=== PATIENT | female | born 1995 | race Caucasian/White ===

== ENCOUNTER 2020-06-24 12:09 | Observation (INO) | payer BC, MEDICAID ==
[~2020-06-24] VITALS: Ht 170.2 cm; Wt 108.9 kg
[2020-06-24 12:10] VITALS: BP_SYST 129
[2020-06-24] MEDS ORDERED: NACL 0.9% 1,000 ML IV ONE (12:15)
[2020-06-24 12:57] LABS: BASOPHILS # (AUTO) 0.1 K/uL (0.0-0.2); BASOPHILS % (AUTO) 0.9 % (0.0-2.0); EOSINOPHILS % (AUTO) 0.2 % (0.0-4.0); HEMATOCRIT 40.3 % (36-48); HEMOGLOBIN 13.9 g/dL (12.0-16.0); LYMPHOCYTES # (AUTO) 1.9 K/uL (1.0-5.5); LYMPHOCYTES % (AUTO) 22.6 % (20.5-51.5); MEAN CORPUSCULAR HEMOGLOBIN 30 pg (27-31); MEAN CORPUSCULAR HGB CONC 34 % (32-36); MEAN CORPUSCULAR VOLUME 87 fL (79.0-98.0); MONOCYTES # (AUTO) 0.6 K/uL (0.0-1.0); MONOCYTES % (AUTO) 6.5 % (1.7-9.3); NEUTROPHILS % (AUTO) 69.8 % (40.0-70.0); PLATELET COUNT (AUTO) 247 K/uL (130-430); RED BLOOD CELL COUNT(AUTO) 4.65 MIL/uL (4.2-6.2); RED CELL DISTRIBUTION WIDTH 12.8 % (9.0-15.0); WHITE BLOOD COUNT (AUTO) 8.5 K/uL (4.8-10.8)
[2020-06-24 13:10] LABS: CALCIUM 9.1 mg/dL (8.4-11.0); CREATININE 0.62 mg/dL (0.55-1.30); POTASSIUM 3.7 mmol/L (3.5-5.1)
[2020-06-24 13:12] LABS: PROTHROMBIN TIME 10.4 SECS (9.5-12.5)
[2020-06-24 13:36] LABS: ALBUMIN 3.4 g/dL (3.4-4.8); TOTAL BILIRUBIN 0.3 mg/dL (0.0-1.0)
[2020-06-24] MEDS ORDERED: ONDANSETRON HCL 4 MG/2 ML VIAL IVP ONE (14:15)
[2020-06-24 14:34] LABS: BILIRUBIN,URINE 1+ (NEGATIVE); BLOOD, URINE NEGATIVE (NEGATIVE); CLARITY/URINE SL CLOUDY (CLEAR); COLOR,URINE YELLOW (YELLOW); GLUCOSE,URINE NEGATIVE (NEGATIVE); KETONES,URINE 3+ (NEGATIVE); LEUKOCYTE ESTERASE ,URINE NEGATIVE (NEGATIVE); NITRITE, URINE NEGATIVE (NEGATIVE); PROTEIN URINE TRACE (NEGATIVE); UROBILINOGEN,URINE 0.2 (0.2-1.0)
[2020-06-24 14:47] LABS: BACTERIA,URINE None Seen /HPF (None Seen); RBC,URINE NONE SEEN /HPF (0-3); TRICHOMONAS,URINE None Seen /HPF (None Seen); WBC,URINE 0-3 /HPF (0-3); YEAST,URINE None Seen /HPF (None Seen)
[2020-06-24 15:18] VITALS: BP_SYST 129
[2020-06-24] MEDS ORDERED: ACETAMINOPHEN 325 MG TABLET PO ONE (17:58)
[2020-06-24] MEDS ORDERED: ACETAMINOPHEN 325 MG TABLET ONE (18:00)
== END 2020-06-24 19:05 | disposition home or self-care (01) ==
LOC: SED 12:09 → SPU 15:00 → INTOOBSV 15:23 → SPU 15:23
PROVIDERS: ADMIT Specialist; ATTEND Specialist
DX: O21.1 Hyperemesis gravidarum with metabolic disturbance (principal); Z20.822 Contact with and (suspected) exposure to COVID-19; O26.892 Other specified pregnancy related conditions, second trimester; R63.4 Abnormal weight loss; Z3A.15 15 weeks gestation of pregnancy; Z79.899 Other long term (current) drug therapy
CPT/HCPCS: 36415; 71045; 80053; 81000; 83690; 84702; 85025; 85610; 87426; 96361; 96374; 99284; G0378; J2405

== ENCOUNTER 2020-06-25 14:06 | Observation (INO) | payer MEDICAID ==
[~2020-06-25] VITALS: Ht 170.2 cm; Wt 108.0 kg
[2020-06-25] MEDS ORDERED: D5/0.45 NS 1,000 ML IV ONE (14:20)
[2020-06-25] MEDS ORDERED: ONDANSETRON HCL 4 MG/2 ML VIAL IVP PRN (14:30)
--- NOTE | 2020-06-25 16:36 | NUR ---
Discharge Planning: DCP arrange IV Meds with Soraya Briones [phone] medication delivered today, [facility] ([phone]) per Godfrey will see patient at no cost. DCP gave patient information for Soraya Briones and [facility].
== END 2020-06-25 19:59 | disposition home or self-care (01) ==
LOC: SPU 14:06
PROVIDERS: ADMIT Specialist; ATTEND Specialist
DX: O21.0 Mild hyperemesis gravidarum (principal); Z3A.14 14 weeks gestation of pregnancy
CPT/HCPCS: G0378; J2405

== ENCOUNTER 2020-06-30 21:37 | Emergency (ER) | payer MEDICAID ==
[~2020-06-30] VITALS: Ht 170.2 cm; Wt 103.9 kg
--- NOTE | 2020-06-30 21:51 | NUR ---
Patient to ER bed 4 to gown for evaluation. Side rails up.
--- NOTE | 2020-06-30 21:51 | NUR ---
Patient BIB by family from home. C/O chest wall pain and palpitation x today. Patient have chest wall pain and palpiation x 15 mins ETA, Hx preg 16 weeks and Hyperemesis, PICC line for IV fluid everyday by [facility] nurses. A/O,X4, chest wall pain, 10, place patient on senior marketing associate and pulse ox, Stat EKG at bedside .
[2020-06-30 21:54] VITALS: BP_SYST 127
--- NOTE | 2020-06-30 22:19 | NUR ---
ER Dr. Lin at bedside examining patient.
--- NOTE | 2020-06-30 22:36 | NUR ---
CXR at bedside.
--- NOTE | 2020-06-30 23:38 | NUR ---
Pulled out PICC line 2.5 cm with sterile technique by FRAN Langley and FRAN Bunn, Patient tolerated well.
[2020-06-30 23:50] VITALS: BP_SYST 127
--- NOTE | 2020-06-30 23:50 | NUR ---
Patient given written and verbal discharge instructions and verbalizes understanding. ER MD discussed with patient the results and treatment provided. Patient in stable condition. ID arm band removed. No Rx given. Patient educated on pain management and to follow up with PMD. Pain Scale 1/10. Opportunity for questions provided and answered.
== END 2020-06-30 23:50 | disposition home or self-care (01) ==
LOC: SED 21:37
DX: R00.2 Palpitations (principal); Z88.6 Allergy status to analgesic agent
CPT/HCPCS: 71045; 93005; 99283

== ENCOUNTER 2020-10-05 05:30 | Observation (INO) | payer MEDICAID ==
[~2020-10-05] VITALS: Ht 170.2 cm; Wt 104.3 kg
[2020-10-05] MEDS ORDERED: TERBUTALINE SULFATE 1 MG/ML VIAL SUBCUT PRN (06:45)
[2020-10-05 07:55] LABS: BILIRUBIN,URINE NEGATIVE (NEGATIVE); BLOOD, URINE NEGATIVE (NEGATIVE); CLARITY/URINE CLEAR (CLEAR); COLOR,URINE YELLOW (YELLOW); GLUCOSE,URINE NEGATIVE (NEGATIVE); KETONES,URINE NEGATIVE (NEGATIVE); LEUKOCYTE ESTERASE ,URINE 1+ (NEGATIVE); NITRITE, URINE NEGATIVE (NEGATIVE); PH,URINE 6.5 (5.0-8.0); PROTEIN URINE NEGATIVE (NEGATIVE); UROBILINOGEN,URINE 0.2 (0.2-1.0)
[2020-10-05 08:01] LABS: BACTERIA,URINE FEW /HPF (None Seen); RBC,URINE 0-3 /HPF (0-3)
[2020-10-05] MEDS ORDERED: BETAMET ACET/BETAMET NA PH 30 MG/5 ML VIAL IM ONE (09:04)
[2020-10-05] MEDS ORDERED: NITROFURANTOIN MONOHYD/M-CRYST 100 MG CAPSULE (MacroBID) PO ONE (12:00)
== END 2020-10-05 12:20 | disposition home or self-care (01) ==
LOC: SPU 05:30 → UNDOADMOB 05:30 → SPU 05:46
PROVIDERS: ADMIT Specialist; ATTEND Specialist
DX: O62.9 Abnormality of forces of labor, unspecified (principal); Z3A.29 29 weeks gestation of pregnancy
CPT/HCPCS: 81000; 87086; 96372; G0378; J0702; J3105; 59899; 81002

== ENCOUNTER 2020-11-13 20:01 | Observation (INO) | payer MEDICAID ==
[~2020-11-13] VITALS: Ht 170.2 cm; Wt 108.0 kg
[2020-11-13 22:19] LABS: BILIRUBIN,URINE NEGATIVE (NEGATIVE); BLOOD, URINE 1+ (NEGATIVE); CLARITY/URINE CLEAR (CLEAR); COLOR,URINE YELLOW (YELLOW); GLUCOSE,URINE NEGATIVE (NEGATIVE); KETONES,URINE NEGATIVE (NEGATIVE); LEUKOCYTE ESTERASE ,URINE NEGATIVE (NEGATIVE); NITRITE, URINE NEGATIVE (NEGATIVE); PH,URINE 6.5 (5.0-8.0); PROTEIN URINE NEGATIVE (NEGATIVE); UROBILINOGEN,URINE 0.2 (0.2-1.0)
[2020-11-13 22:35] LABS: BACTERIA,URINE RARE /HPF (None Seen); WBC,URINE 0-3 /HPF (0-3)
== END 2020-11-13 21:20 | disposition home or self-care (01) ==
LOC: SPU 20:01
PROVIDERS: ADMIT Specialist; ATTEND Specialist
DX: Z34.83 Encounter for supervision of other normal pregnancy, third trimester (principal); Z3A.35 35 weeks gestation of pregnancy
CPT/HCPCS: 59025; 81000; 81002; G0378

== ENCOUNTER 2020-11-30 06:00 | Inpatient (IN) | payer MEDICAID ==
[~2020-11-30] VITALS: Ht 170.2 cm; Wt 104.3 kg
[2020-11-30] MEDS ORDERED: CEFAZOLIN 2 GM IVPB PREMIX 50 ML IV ONE (09:30)
[2020-11-30] MEDS ORDERED: LR 1,000 ML IV ONE (09:30)
[2020-11-30 10:17] LABS: BASOPHILS % (AUTO) 0.5 % (0.0-2.0); EOSINOPHILS # (AUTO) 0.1 K/uL (0.0-0.4); EOSINOPHILS % (AUTO) 0.5 % (0.0-4.0); HEMATOCRIT 32.8 % (36-48); LYMPHOCYTES # (AUTO) 2.4 K/uL (1.0-5.5); MEAN CORPUSCULAR HEMOGLOBIN 27 pg (27-31); MEAN CORPUSCULAR HGB CONC 34 % (32-36); MEAN CORPUSCULAR VOLUME 80 fL (79.0-98.0); MONOCYTES # (AUTO) 0.6 K/uL (0.0-1.0); MONOCYTES % (AUTO) 6.2 % (1.7-9.3); NEUTROPHILS # (AUTO) 6.9 K/uL (1.8-7.7); NEUTROPHILS % (AUTO) 68.8 % (40.0-70.0); PLATELET COUNT (AUTO) 213 K/uL (130-430); RED BLOOD CELL COUNT(AUTO) 4.12 MIL/uL (4.2-6.2); RED CELL DISTRIBUTION WIDTH 14.7 % (9.0-15.0); WHITE BLOOD COUNT (AUTO) 10.1 K/uL (4.8-10.8)
[2020-11-30 10:24] LABS: BILIRUBIN,URINE NEGATIVE (NEGATIVE); BLOOD, URINE NEGATIVE (NEGATIVE); CLARITY/URINE CLEAR (CLEAR); COLOR,URINE YELLOW (YELLOW); GLUCOSE,URINE NEGATIVE (NEGATIVE); KETONES,URINE TRACE (NEGATIVE); LEUKOCYTE ESTERASE ,URINE 1+ (NEGATIVE); NITRITE, URINE NEGATIVE (NEGATIVE); PROTEIN URINE NEGATIVE (NEGATIVE); UROBILINOGEN,URINE 0.2 (0.2-1.0)
[2020-11-30 10:45] LABS: BACTERIA,URINE FEW /HPF (None Seen); RBC,URINE 0-3 /HPF (0-3)
[2020-11-30 13:16] VITALS: BP_SYST 112
[2020-11-30] MEDS ORDERED: ONDANSETRON HCL 4 MG/2 ML VIAL IVP ONE (14:22)
[2020-11-30] MEDS ORDERED: NS IRRIG SOLN 1000 ML IR ONE (14:22)
[2020-11-30] MEDS ORDERED: OXYTOCIN/0.9 % SODIUM CHLORIDE 20 UNITS/1,000 ML BAG IV ONE (14:22)
[2020-11-30] MEDS ORDERED: BUPIVACAINE /PF 0.25% 30 ML VIAL INJ ONE (14:22)
[2020-11-30] MEDS ORDERED: MORPHINE SULFATE 10MG/10ML PF AMP EP ONE (14:22)
[2020-11-30] MEDS ORDERED: LR 1,000 ML IV.SOLN IV ONE (14:22)
[2020-11-30] MEDS ORDERED: BUPIVACAINE /PF 0.75% 10 ML VIAL INJ ONE (14:22)
[2020-11-30] MEDS ORDERED: DEXAMETHASONE SOD PHOSPHATE 4 MG/ML VIAL IVP ONE (14:22)
[2020-11-30] MEDS ORDERED: METOCLOPRAMIDE HCL 10 MG/2 ML VIAL IVP ONE (14:22)
[2020-11-30 15:30] VITALS: BP_SYST 120
[2020-11-30] MEDS ORDERED: MEPERIDINE HCL/PF 25 MG/ML DISP.SYRIN IVP PRN ×2 (15:30)
[2020-11-30] MEDS ORDERED: DIPH-TET-PERTUS Vaccine 0.5 ML VIAL (ADACEL) I.M. PRN (15:30)
[2020-11-30] MEDS ORDERED: NALOXONE HCL 0.4 MG/ML AMP (NARCAN) IVP PRN ×5 (15:30)
[2020-11-30] MEDS ORDERED: LR 1,000 ML IV SCH ×2 (15:30)
[2020-11-30] MEDS ORDERED: ANUSOL 1 EA SUPP.RECT (PREPARATION H) RC PRN (15:30)
[2020-11-30] MEDS ORDERED: TEMAZEPAM 15 MG CAPSULE PO PRN (15:30)
[2020-11-30] MEDS ORDERED: LANOLIN 7 GM OINT. TP PRN (15:30)
[2020-11-30] MEDS ORDERED: NALOXONE HCL 1 MG in NACL 0.9% 1,000 ML IV PRN ×4 (15:30)
[2020-11-30] MEDS ORDERED: BISACODYL 10 MG/SUPPOSITORY RC PRN (15:30)
[2020-11-30] MEDS ORDERED: RHO(D) IMMUNE GLOBULIN/MALTOSE 1500 UNITS/1.3 ML (WINHRO) IM PRN (15:30)
[2020-11-30] MEDS ORDERED: HYDROmorphone 2 MG/ML VIAL IVP PRN ×2 (15:30)
[2020-11-30] MEDS ORDERED: MORPHINE SULFATE 10MG/10ML PF AMP SP SCH (15:30)
[2020-11-30] MEDS ORDERED: MEASLES,MUMPS&RUBELLA VACC/PF 12500 UNIT/0.5 ML VIAL SUBQ PRN (15:30)
[2020-11-30] MEDS ORDERED: DIPHENHYDRAMINE INJ 50 MG/ML VIAL IVP PRN (15:30)
[2020-11-30] MEDS ORDERED: DIPHENHYDRAMINE HCL 50 MG CAPSULE PO PRN (15:30)
[2020-11-30] MEDS ORDERED: HYDROmorphone 1 MG/ML INJ. CARTRIDGE IVP PRN (15:30)
[2020-11-30] MEDS ORDERED: KETOROLAC TROMETHAMINE 60 MG/2 ML VIAL IM PRN (15:30)
[2020-11-30] MEDS ORDERED: MEPERIDINE HCL/PF 25 MG/ML DISP.SYRIN ONE (16:13)
[2020-11-30] MEDS ORDERED: ONDANSETRON HCL 4 MG/2 ML VIAL ONE (16:13)
[2020-11-30] MEDS: ONDANSETRON HCL 4 MG/2 ML VIAL IVP PRN (20:21)
[2020-11-30] MEDS: OXYTOCIN/0.9 % SODIUM CHLORIDE 1,000 ML IV SCH (20:21)
[2020-11-30] MEDS: CEFAZOLIN 1 GM IVPB PREMIX 50 ML IV SCH (20:22)
[2020-11-30] MEDS ORDERED: SENNOSIDES/DOCUSATE SODIUM 1 TAB TABLET(SENOKOT-S) PO SCH (21:00)
[2020-11-30] MEDS ORDERED: METOCLOPRAMIDE HCL 10 MG/2 ML VIAL IVP PRN (23:00)
[2020-12-01] MEDS: ONDANSETRON HCL 4 MG/2 ML VIAL IVP PRN ×3 (00:48→10:44)
[2020-12-01] MEDS: OXYTOCIN/0.9 % SODIUM CHLORIDE 1,000 ML IV SCH ×3 (00:49→13:55)
[2020-12-01] MEDS: CEFAZOLIN 1 GM IVPB PREMIX 50 ML IV SCH ×2 (02:49→09:08)
[2020-12-01] MEDS: KETOROLAC TROMETHAMINE 30 MG VIAL IVP SCH ×3 (05:50→18:18)
[2020-12-01 06:46] LABS: BASOPHILS % (AUTO) 0.2 % (0.0-2.0); HEMATOCRIT 31.7 % (36-48); HEMOGLOBIN 10.8 g/dL (12.0-16.0); LYMPHOCYTES # (AUTO) 1.9 K/uL (1.0-5.5); LYMPHOCYTES % (AUTO) 14.1 % (20.5-51.5); MEAN CORPUSCULAR HEMOGLOBIN 27 pg (27-31); MEAN CORPUSCULAR HGB CONC 34 % (32-36); MEAN CORPUSCULAR VOLUME 80 fL (79.0-98.0); MONOCYTES # (AUTO) 1.1 K/uL (0.0-1.0); MONOCYTES % (AUTO) 8.1 % (1.7-9.3); NEUTROPHILS # (AUTO) 10.7 K/uL (1.8-7.7); NEUTROPHILS % (AUTO) 77.6 % (40.0-70.0); PLATELET COUNT (AUTO) 237 K/uL (130-430); RED BLOOD CELL COUNT(AUTO) 3.99 MIL/uL (4.2-6.2); RED CELL DISTRIBUTION WIDTH 14.3 % (9.0-15.0)
[2020-12-01 08:12] LABS: WHITE BLOOD COUNT (AUTO) 13.8 K/uL (4.8-10.8)
[2020-12-01] MEDS: DOCUSATE SODIUM 100 MG CAPSULE PO SCH (09:15)
[2020-12-01] MEDS: SIMETHICONE 80 MG TAB.CHEW PO PRN ×2 (09:15→22:18)
[2020-12-01] MEDS ORDERED: ACETAMINOPHEN 325 MG TABLET PO PRN (16:30)
[2020-12-01] MEDS ORDERED: IBUPROFEN 600 MG TABLET PO SCH (18:00)
[2020-12-01] MEDS: OXYCODONE/ACETAMINOPHEN 5-325 TABLET PO PRN (22:19)
[2020-12-02] MEDS ORDERED: CALCIUM CARBONATE 500 MG/ TAB.CHEW PO PRN
[2020-12-02] MEDS: KETOROLAC TROMETHAMINE 30 MG VIAL IVP SCH (00:08)
[2020-12-02] MEDS: SIMETHICONE 80 MG TAB.CHEW PO PRN ×2 (06:11→09:24)
[2020-12-02] MEDS: IBUPROFEN 600 MG TABLET PO SCH ×3 (06:12→18:18)
[2020-12-02] MEDS: OXYCODONE/ACETAMINOPHEN 5-325 TABLET PO PRN (06:12)
[2020-12-02] MEDS: DOCUSATE SODIUM 100 MG CAPSULE PO SCH (09:24)
[2020-12-02] MEDS: OXYCODONE/ACETAMINOPHEN *10*mg/325 mg TABLET PO PRN ×2 (09:25→16:17)
== END 2020-12-02 20:45 | disposition home or self-care (01) | DRG 540 ==
LOC: SPU 06:00 → OBSVTOIN 06:00 → SPU 12-01 11:09
PROVIDERS: ADMIT Specialist; ATTEND Specialist
PROC: 10D00Z1 Extraction of Products of Conception, Low, Open Approach (ICD-10-PCS; principal; 2020-11-30 13:00)
DX: O34.211 Maternal care for low transverse scar from previous cesarean delivery (principal); Z20.822 Contact with and (suspected) exposure to COVID-19; Z37.0 Single live birth; Z3A.37 37 weeks gestation of pregnancy; Z3A.39 39 weeks gestation of pregnancy
CPT/HCPCS: 36415; 81000; 81002; 85025; 86592; 86886; 86900; 86901; 94760; J0690; J1100; J1885; J2175; J2274; J2405; J2590; J2765; J3490; J7120